=== PATIENT | female | born 1960 | race Caucasian/White ===

== ENCOUNTER 2018-06-20 00:34 | Emergency (ER) | END 2018-06-20 02:30 | disposition home or self-care (01) ==

== ENCOUNTER 2018-08-03 10:01 | Day surgery (SDC) | END 2018-08-03 13:04 | disposition home or self-care (01) ==

== ENCOUNTER 2019-01-13 09:13 | Day surgery (SDC) | payer OTHER ==
[~2019-01-13] VITALS: Ht 149.9 cm; Wt 83.5 kg
[2019-01-13] VITALS (12 sets, daily range): BP systolic 109–146; BP diastolic 57–76; PULSE 78–94; RESP 16–30; Ht 149.9 cm; Wt 83.5 kg
[~2019-01-13 09:13] MED LIST: AMLO-147 PO; ASPI-903 PO; HYDROCHLOR; LISI40TA3 PO; MTF1000T PO; atorvastatin
[2019-01-13] MEDS ORDERED: LISI40TA3 PO (10:33)
[2019-01-13] MEDS ORDERED: ATOR40TA68 PO (10:34)
[2019-01-13] MEDS ORDERED: AMLO-147 PO (10:34)
[2019-01-13] MEDS ORDERED: GLIM2TAB PO (10:34)
[2019-01-13] MEDS ORDERED: HYDR25TA6 PO (10:35)
[2019-01-13] MEDS ORDERED: METF100010 PO (10:35)
[2019-01-13] MEDS ORDERED: ASPI81TA52 PO (10:35)
--- NOTE | 2019-01-13 11:24 | PREAC ---
Date/Time of Note Date/Time of Note DATE: 01/13/19 TIME: 11:23 Anesthesia Eval and Record Evaluation Time Pre-Procedure Interview DATE: 01/13/19 TIME: 11:23 Age 58 Sex female NPO: 8 hrs Preoperative diagnosis left eyelid basal cell Planned procedure left eyelid basal cell excision and flap Past Medical History Past Medical History: Includes Cardio: HTN, Dyslipidemia Endo: Diabetes GI: Obesity Surgery & Anesthesia Issues No known issue Meds Anticoagulation: No Beta Marj within 24 hr: No Reason Beta Marj not given: Pt. not on B-Marj Reported Medications Hydrochlorothiazide* (Hydrochlorothiazide*) 25 Mg Tab, 25 MG PO DAILY, #30 TAB 01/13/19 Metformin Hcl* (Metformin Hcl*) 1,000 Mg Tablet, 1000 MG PO WITH BREAKFAST DINNE, #60 TAB 01/13/19 Aspirin (Low Dose Aspirin) 81 Mg Tablet.dr, 81 MG PO DAILY, #30 TAB 01/13/19 Atorvastatin* (Atorvastatin*) 40 Mg Tablet, 40 MG PO QHS, #30 TAB 01/13/19 Glimepiride* (Glimepiride*) 2 Mg Tablet, 2 MG PO WITH BREAKFAST DINNE, TAB 01/13/19 Amlodipine Besylate* (Amlodipine Besylate*) 10 Mg Tablet, 10 MG PO DAILY, #30 TAB 01/13/19 Lisinopril* (Lisinopril*) 40 Mg Tablet, 40 MG PO DAILY, #30 TAB 01/13/19 Discontinued Reported Medications [atorvastatin] No Conflict Check 08/03/18 [hydrochlor] No Conflict Check 08/03/18 Lisinopril* (Lisinopril*) 40 Mg Tablet, 40 MG PO DAILY, #30 TAB 08/03/18 Amlodipine Besylate* (Amlodipine Besylate*) 10 Mg Tablet, 10 MG PO DAILY, #30 TAB 08/03/18 Aspirin* (Aspirin* Chew) 81 Mg Tab.chew, 81 MG PO DAILY, TAB.CHEW 08/03/18 Metformin* (Glucophage*) 1,000 Mg Tablet, 1000 MG PO BID, #60 TAB 08/03/18 Meds reviewed: Yes Allergies Coded Allergies: No Known Allergy (Unverified , 01/13/19) Allergies Reviewed: Yes Labs/Studies Labs Reviewed: Reviewed by anesthesiologist test: N/A Pre-procedure Exam Last vitals Vital Signs Date Temp Pulse Resp B/P (MAP) Pulse Ox O2 O2 Flow FiO2 Time Delivery Rate 01/13/19 97.7 78 16 137/75 96 09:40 (95) Airway: Adequate mouth opening, Adequate thyromental dist Mallampati: Mallampati II Teeth: Normal Lung: Normal Heart: Normal ASA Physical Status ASA physical status: 2 Emergency: None Planned Anesthetic General/MAC: LMA Planned Pain Management Parenteral pain med Pre-operative Attestations Prior to commencing anesthesia and surgery, the patient was re-evaluated, there was verification of: *The patient's identity *The results of appropriate recent lab work and preoperative vital signs *The above evaluation not changing prior to induction *Anesthetic plan, risk benefits, alternative and complications discussed with patient/family; questions answered; patient/family understands, accepts and wishes to proceed. [employer] Labels used ELE CHUNG MD Jan 13, 2019 11:24
--- NOTE | 2019-01-13 11:50 | HPN ---
Date/Time of Note Date/Time of Note DATE: 01/13/19 TIME: 11:49 Interval H&P Admission Note Pt. seen H&P reviewed: No system changes GARY LEVINE MD Jan 13, 2019 11:50
[2019-01-13] MEDS ORDERED: HYDROCODONE/APAP (5/325) TAB PO PRN (12:00)
[2019-01-13] MEDS ORDERED: HYDROCODONE/APAP (5/325) TAB GTB PRN (12:00)
[2019-01-13] MEDS ORDERED: ACETAMINOPHEN 325 MG TAB PO PRN (12:00)
[2019-01-13] MEDS ORDERED: morphine 2 MG INJ IV PRN (12:00)
[2019-01-13] MEDS ORDERED: ONDANSETRON 4 MG INJ IV PRN ×2 (12:00→12:30)
--- NOTE | 2019-01-13 12:06 | OPR ---
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 The risks, benefits, alternatives of performing this procedure were discussed with the patient including the risks of bleeding, infection, wound healing problems, distortion of surrounding structures, nerve damage, changes in sensation, need for revision, and the patient states that they understand these risks and would like to proceed with the procedure. All questions were answered, no guarantees were given with regards to the outcome of this procedure. Description of procedure: The patient was brought to the operating room at [facility] where general anesthesia was induced. The circumference of the lesion was marked with a marking pen. The skin was prepped with alcohol and then a total of 10cc of 1% lidocaine with 1:100,000 epi were injected. Next, the patient was prepped and draped in usual sterile fashion. The 15 blade was then used to excise around the circumference of the lesion. Dissection proceeded with the 15 blade into the subcutaneous tissue and then the lesion was excised from the muscular layer using the electrocautery. This was sent for pathology. A short stitch was placed inferior and long stitch was placed lateral. Pathology returned positive medial and lateral, and therefore these margins were re-excised. This returned negative. Size of the specimen was 4 x 1.5cm. The wound was inspected. The medial canthal tendon appeared to be present and intact. Hemostasis was achieved with electrocautery. The wound was inspected, and in order to close without tension and avoid distorting the surrounding structures, an inferiorly based advancement flap was planned to rest in the nasolabial fold and along the lower eyelid margin. This was marked with the marking pen. The flap was then incised with a 15 blade, and was undermined sharply with the electrocautery. It was then advanced into position. It sat in place without undue tension. Therefore hemostasis was achieved with electrocautery, and then the incision was closed with 5-0 Vicryl suture, 4-0 chromic suture along the lower eyelid and 5-0 nylon suture along the nasolabial fold. The final size of the flap was 10x5cm. NGOC Stanley ssisted with this procedure. 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
[2019-01-13] MEDS ORDERED: LIDOCAINE 2% (SDV) 5 ML INJ ONE (12:21)
[2019-01-13] MEDS ORDERED: MIDAZOLAM 1 MG/ML 2 ML INJ ONE (12:21)
[2019-01-13] MEDS ORDERED: PROPOFOL 20 ML ONE (12:22)
[2019-01-13] MEDS ORDERED: LIDOCAINE 1%/EPI (1:100,000) (MDV) 20 ML ONE ×2 (12:26→12:33)
[2019-01-13] MEDS ORDERED: hydrALAzine 20 MG INJ IV PRN (12:30)
[2019-01-13] MEDS ORDERED: LABETALOL HCL 20MG INJ IV PRN (12:30)
[2019-01-13] MEDS ORDERED: MEPERIDINE 25 MG INJ IV PRN (12:30)
[2019-01-13] MEDS ORDERED: DIPHENHYDRAMINE 50 MG INJ IV PRN (12:30)
[2019-01-13] MEDS ORDERED: PROCHLORPERAZINE 10 MG INJ IV PRN (12:30)
[2019-01-13] MEDS ORDERED: FENTAnyl 50 MCG/ML VIAL IV PRN (12:30)
[2019-01-13] MEDS ORDERED: HYDROmorphONE 1 MG/5 ML IV SYRINGE IV PRN ×2 (12:30)
[2019-01-13] MEDS ORDERED: OXYCODONE/ACETAMINOPHEN (5/325) TAB PO PRN (12:30)
[2019-01-13] MEDS ORDERED: METOCLOPRAMIDE 10 MG INJ ONE (12:36)
[2019-01-13] MEDS ORDERED: ONDANSETRON 4 MG INJ ONE (12:36)
[2019-01-13] MEDS ORDERED: FAMOTIDINE 20 MG INJ ONE (12:36)
[2019-01-13] MEDS ORDERED: OCULAR LUBRICANT 3.5 GM OPH OINT ONE (12:38)
[2019-01-13] MEDS ORDERED: FENTAnyl 50 MCG/ML VIAL ONE (12:40)
[2019-01-13] MEDS ORDERED: PHENYLephrine (100 MCG/ML) 10ML SYG ONE (12:45)
[2019-01-13] MEDS ORDERED: EPHEDrine 25 MG/5 ML SYG ONE (12:54)
[2019-01-13] MEDS ORDERED: BACITRACIN 0.9 GM OINT ONE (13:49)
--- NOTE | 2019-01-13 14:32 | PAC ---
Date/Time of Note Date/Time of Note DATE: 01/13/19 TIME: 14:32 Post-Anesthesia Notes Post-Anesthesia Note Last documented vital signs Vital Signs Date Temp Pulse Resp B/P (MAP) Pulse Ox O2 O2 Flow FiO2 Time Delivery Rate 01/13/19 109/61 Mask 14:18 (77) 01/13/19 98.1 14:13 01/13/19 78 16 96 09:40 Activity: WNL Respiratory function: WNL Cardiovascular function: WNL Mental status: Baseline Pain reasonably controlled: Yes Hydration appropriate: Yes Nausea/Vomiting absent: Yes Comments BP: 120/65 HR: 91 RR: 15 T: 98.1 SaO2: 96% ELE CHUNG MD Jan 13, 2019 14:32
[2019-01-13] MEDS ORDERED: INSULIN ASPART [NOVOLOG] 3 ML PEN SC ONE (15:00)
[2019-01-13] MEDS ORDERED: GLUCOSE GEL 15 GRAM TUBE BUCCAL PRN (15:00)
[2019-01-13] MEDS ORDERED: GLUCOSE GEL 15 GRAM TUBE PO PRN ×2 (15:00)
[2019-01-13] MEDS ORDERED: DEXTROSE 50% 50 ML SYRINGE IV PRN ×2 (15:00)
[2019-01-13] MEDS ORDERED: GLUCAGON 1 MG INJ IM PRN (15:00)
== END 2019-01-13 16:55 | disposition home or self-care (01) ==
LOC: SDS 09:13
PROVIDERS: ATTEND Surgery Plastic and Reconstructive Surgery
DX: C44.1192 Basal cell carcinoma of skin of left lower eyelid, including canthus (principal); L57.8 Other skin changes due to chronic exposure to nonionizing radiation; I10 Essential (primary) hypertension; E11.9 Type 2 diabetes mellitus without complications; E78.5 Hyperlipidemia, unspecified
CPT/HCPCS: 14060; 82962; 88307; 88331; J1170; J1815; J2250; J2370; J2405; J2765; J3010; Z7512; Z7610